=== PATIENT | female | born 2000 ===

== ENCOUNTER 2023-04-21 18:38 | Inpatient (IN) | payer BC ==
[2023-04-21] MEDS ORDERED: Phenylephrine HCl 0.5 MG/5 ML AMP IVPUSH PRN (20:33)
[2023-04-21] MEDS ORDERED: ePHEDrine 50 MG/ML SDV IVPUSH PRN ×2 (20:33)
[2023-04-21] MEDS ORDERED: Ondansetron 4 MG/2 ML SDV IVPUSH PRN (20:41)
[2023-04-21] MEDS ORDERED: Sodium Chloride 0.9% 2.5 ML Syringe FLUSH PRN (20:41)
[2023-04-21] MEDS ORDERED: Lidocaine 1% 50 ML MDV INJECT PRN (20:41)
[2023-04-21] MEDS ORDERED: Water For Irrigation,Sterile 1,000 ML Container IRR PRN (20:41)
[2023-04-21] MEDS ORDERED: Terbutaline 1 MG/ML SDV SUBCUT PRN (20:41)
[2023-04-21] MEDS ORDERED: Misoprostol 200 MCG Tab PO PRN (20:41)
[2023-04-21] MEDS ORDERED: Tranexamic Acid IN NACL,ISO-OS 1,000 MG in Premix Bag 1 BAG IV PRN (20:41)
[2023-04-21] MEDS ORDERED: Methylergonovine 0.2 MG/1 ML Amp IM PRN (20:41)
[2023-04-21] MEDS ORDERED: Sodium Chloride 0.9% 20 ML SDV IV PRN (20:41)
[2023-04-21] MEDS ORDERED: Carboprost Tromethamine 250 MCG/1 mL Vial IM PRN (20:41)
[2023-04-21] MEDS ORDERED: Sodium Chloride 0.9% 10 ML Syringe FLUSH PRN (20:41)
[2023-04-21] MEDS ORDERED: Nalbuphine 10 MG/0.5 ML Syringe IVPUSH PRN (20:41)
[2023-04-21] MEDS ORDERED: Oxytocin/0.9 % Sodium Chloride 30 UNIT/500 ML BAG IV SCH (20:45)
[2023-04-21 21:35] LABS: HEMOGLOBIN 11.5 g/dL (12.0-16.0); MEAN CORPUSCULAR HEMOGLOBIN 25.9 pg (28.0-32.0); MEAN CORPUSCULAR HGB CONC 32.9 g/dL (32.0-36.0); MEAN CORPUSCULAR VOLUME 78.8 fL (83.0-99.0); MEAN PLATELET VOLUME 12.6 fL (9.4-12.3); PLATELET COUNT,PLT 234 K/uL (150-400); RED BLOOD CELL COUNT 4.44 M/uL (4.10-5.30); WHITE BLOOD CELL COUNT,WBC 14.24 K/uL (3.9-11.3)
[2023-04-21] MEDS: Lactated Ringers 1,000 ML IV SCH (21:55)
[2023-04-21] MEDS: Ropivacaine HCl/PF 400 MG in Premix Bag 1 BAG EPIDUR SCH (22:18)
[2023-04-21] MEDS ORDERED: dexmedeTOMIDine HCl 200 MCG/2 ML SDV ONE (22:23)
[2023-04-22] MEDS: Oxytocin/0.9 % Sodium Chloride 30 UNIT/500 ML BAG IV SCH (01:55)
[2023-04-22] MEDS ORDERED: Acetaminophen 500 MG Tab PO PRN (08:56)
[2023-04-22] MEDS ORDERED: Docusate Sodium 100 MG Cap PO PRN (08:56)
[2023-04-22] MEDS ORDERED: Benzocaine/Menthol 20%-0.5% Spray 78 GM Cannister TOP PRN (08:56)
[2023-04-22] MEDS ORDERED: Oxytocin 10 Units/1 ML SDV IM PRN (08:58)
[2023-04-22] MEDS: Acetaminophen 500 MG Tab PO ONE (09:24)
[2023-04-22] MEDS: Docusate Sodium 100 MG Cap PO PRN (09:24)
[2023-04-22] MEDS: Ibuprofen 800 MG Tab PO PRN (17:43)
[2023-04-22] MEDS: Lanolin 100% Cream 7 GM Tube TOP PRN (21:20)
[2023-04-23] MEDS: Witch Hazel Medicated Pads 40/Jar TOP PRN (00:13)
[2023-04-23 06:36] LABS: HEMATOCRIT 29.4 % (37.0-47.0); HEMOGLOBIN 9.5 g/dL (12.0-16.0)
[2023-04-23] MEDS: Sodium Ferric Gluconate Cmplex 125 MG in Sodium Chloride 0.9% 100 ML IV SCH (08:59)
== END 2023-04-23 14:15 | disposition home or self-care (01) | DRG 560 ==
LOC: MW.OBCHECK 18:38 → MW.OB 18:39 → MW.OBCHECK 20:41 → MW.OB 20:41 → OBSVTOIN 04-22 07:05 → MW.OB 04-22 12:17
PROVIDERS: ADMIT Obstetrics & Gynecology; ATTEND Obstetrics & Gynecology
PROC: 10E0XZZ Delivery of Products of Conception, External Approach (ICD-10-PCS; principal; 2023-04-22)
PROC: 3E0P7VZ Introduction of Hormone into Female Reproductive, Via Natural or Artificial Opening (ICD-10-PCS; 2023-04-22)
PROC: 0KQM0ZZ Repair Perineum Muscle, Open Approach (ICD-10-PCS; 2023-04-22)
PROC: 3E0R3BZ Introduction of Anesthetic Agent into Spinal Canal, Percutaneous Approach (ICD-10-PCS; 2023-04-22)
PROC: 00HU33Z Insertion of Infusion Device into Spinal Canal, Percutaneous Approach (ICD-10-PCS; 2023-04-22)
DX: O42.02 Full-term premature rupture of membranes, onset of labor within 24 hours of rupture (principal); Z37.0 Single live birth; O32.6XX0 Maternal care for compound presentation, not applicable or unspecified; O70.1 Second degree perineal laceration during delivery; Z3A.39 39 weeks gestation of pregnancy; O99.03 Anemia complicating the puerperium
CPT/HCPCS: 01967; 36415; 51702; 59025; 84112; 85014; 85018; 85027; 86592; 86850; 86900; 86901; 99213; A9270-GY; J2590; J2795; J2916; J3490; J7120

== ENCOUNTER 2023-05-02 17:19 | Emergency (ER) | payer BC ==
[2023-05-02 18:54] LABS: BASOPHILS ABSOLUTE AUTO 0.01 K/uL (0.00-0.20); BASOPHILS PERCENT AUTO 0.1 % (0.0-1.0); EOSINOPHILS ABSOLUTE AUTO 0.01 K/uL (0.00-0.45); EOSINOPHILS PERCENT AUTO 0.1 % (0.0-6.0); HEMATOCRIT 37.7 % (37.0-47.0); HEMOGLOBIN 12.1 g/dL (12.0-16.0); IMMATURE GRAN ABSOLUTE AUTO 0.04 K/uL (0.00-0.05); IMMATURE GRAN PERCENT AUTO 0.4 % (0.0-0.4); LYMPHOCYTES ABSOLUTE AUTO 2.51 K/uL (1.00-4.80); LYMPHOCYTES PERCENT AUTO 26.9 % (24.0-44.0); MEAN CORPUSCULAR HEMOGLOBIN 25.6 pg (28.0-32.0); MEAN CORPUSCULAR HGB CONC 32.1 g/dL (32.0-36.0); MEAN CORPUSCULAR VOLUME 79.7 fL (83.0-99.0); MEAN PLATELET VOLUME 10.1 fL (9.4-12.3); MONOCYTES ABSOLUTE AUTO 0.64 K/uL (0.00-0.80); MONOCYTES PERCENT AUTO 6.9 % (0.0-8.0); NEUTROPHILS ABSOLUTE AUTO 6.11 K/uL (1.80-7.70); NEUTROPHILS PERCENT AUTO 65.6 % (41.0-71.0); PLATELET COUNT,PLT 390 K/uL (150-400); RED BLOOD CELL COUNT 4.73 M/uL (4.10-5.30); WHITE BLOOD CELL COUNT,WBC 9.32 K/uL (3.9-11.3)
[2023-05-02 19:19] LABS: A/G RATIO 0.7 (0.9-1.6); ALBUMIN 3.5 g/dL (3.4-5.0); BILIRUBIN TOTAL 0.3 mg/dL (0.2-1.0); CALCIUM 9.1 mg/dL (8.5-10.1); CARBON DIOXIDE,CO2 25.2 mmol/L (21.0-32.0); CREATININE 0.8 mg/dL (0.6-1.0); EST CRCL DRUG DOSING (CG) 115.28 mL/min; POTASSIUM,K 3.9 mmol/L (3.5-5.1); PROTEIN TOTAL,TP 8.3 g/dL (6.4-8.2)
[2023-05-02 21:34] LABS: BILIRUBIN,URINE NEGATIVE (NEGATIVE); COLOR,URINE YELLOW; GLUCOSE,URINE NEGATIVE (NEGATIVE); KETONES,URINE NEGATIVE (NEGATIVE); LEUKOCYTE ESTERASE,URINE MODERATE (NEGATIVE); NITRITE,URINE NEGATIVE (NEGATIVE); OCCULT BLOOD,URINE LARGE (NEGATIVE); PROTEIN,URINE NEGATIVE (NEGATIVE); UROBILINOGEN,URINE 0.2 EU/dL (<2.0)
[2023-05-02 21:37] LABS: APPEARANCE,URINE SLT CLOUDY
[2023-05-02 21:40] LABS: BACTERIA,URINE 1+ (NEGATIVE); EPITHELIAL CELLS,URINE FEW (NONE-FEW); MUCUS,URINE LIGHT (NONE-MOD); WBC,URINE 20-25 (0-5/HPF)
[2023-05-02] MEDS: Cephalexin 500 MG Cap PO ONE (21:57)
== END 2023-05-02 22:02 | disposition home or self-care (01) ==
LOC: MW.ED 17:19
DX: N39.0 Urinary tract infection, site not specified (principal); Z75.8 Other problems related to medical facilities and other health care; Z86.16 Personal history of COVID-19
CPT/HCPCS: 36415; 51798; 80053; 81001; 85025; 87086; 99283; A9270

== ENCOUNTER 2024-05-26 23:43 | Inpatient (IN) | payer BC, OTHER ==
[2024-05-26] MEDS ORDERED: Sodium Chloride 0.9% 10 ML Syringe FLUSH PRN (23:56)
[2024-05-26] MEDS ORDERED: Carboprost Tromethamine 250 MCG/1 mL Vial IM PRN (23:56)
[2024-05-26] MEDS ORDERED: Sodium Chloride 0.9% 20 ML SDV IV PRN (23:56)
[2024-05-26] MEDS ORDERED: Misoprostol 200 MCG Tab RECTAL PRN (23:56)
[2024-05-26] MEDS ORDERED: Butorphanol 1 MG/ML SDV IVPUSH PRN (23:56)
[2024-05-26] MEDS ORDERED: Water For Irrigation,Sterile 1,000 ML Container IRR PRN (23:56)
[2024-05-26] MEDS ORDERED: Ondansetron 4 MG/2 ML SDV IVPUSH PRN (23:56)
[2024-05-26] MEDS ORDERED: Lidocaine 1% 50 ML MDV INJECT PRN (23:56)
[2024-05-26] MEDS ORDERED: Methylergonovine 0.2 MG/1 ML Amp IM PRN (23:56)
[2024-05-26] MEDS ORDERED: Sodium Chloride 0.9% 2.5 ML Syringe FLUSH PRN (23:56)
[2024-05-26] MEDS ORDERED: Misoprostol 200 MCG Tab PO PRN (23:56)
[2024-05-27] MEDS: Ampicillin 2 GM in Sodium Chloride 0.9% 100 ML IV ONE (00:10)
[2024-05-27] MEDS: Lactated Ringers 1,000 ML IV SCH (00:10)
[2024-05-27 00:25] LABS: BASOPHILS ABSOLUTE AUTO 0.01 K/uL (0.00-0.20); BASOPHILS PERCENT AUTO 0.1 % (0.0-1.0); EOSINOPHILS ABSOLUTE AUTO 0.01 K/uL (0.00-0.45); EOSINOPHILS PERCENT AUTO 0.1 % (0.0-6.0); HEMATOCRIT 34.7 % (37.0-47.0); HEMOGLOBIN 11.2 g/dL (12.0-16.0); IMMATURE GRAN ABSOLUTE AUTO 0.06 K/uL (0.00-0.05); IMMATURE GRAN PERCENT AUTO 0.5 % (0.0-0.4); LYMPHOCYTES PERCENT AUTO 21.1 % (24.0-44.0); MEAN CORPUSCULAR HEMOGLOBIN 24.6 pg (28.0-32.0); MEAN CORPUSCULAR HGB CONC 32.3 g/dL (32.0-36.0); MEAN CORPUSCULAR VOLUME 76.3 fL (83.0-99.0); MEAN PLATELET VOLUME 11.5 fL (9.4-12.3); MONOCYTES ABSOLUTE AUTO 0.65 K/uL (0.00-0.80); MONOCYTES PERCENT AUTO 5.3 % (0.0-8.0); NEUTROPHILS ABSOLUTE AUTO 9.01 K/uL (1.80-7.70); NEUTROPHILS PERCENT AUTO 72.9 % (41.0-71.0); PLATELET COUNT,PLT 239 K/uL (150-400); RED BLOOD CELL COUNT 4.55 M/uL (4.10-5.30); WHITE BLOOD CELL COUNT,WBC 12.34 K/uL (3.9-11.3)
[2024-05-27] MEDS: Ropivacaine HCl/PF 400 MG in Premix Bag 1 BAG EPIDUR SCH (00:40)
[2024-05-27] MEDS ORDERED: ePHEDrine 50 MG/ML SDV IVPUSH PRN (00:55)
[2024-05-27] MEDS ORDERED: ePHEDrine 50 MG/ML SDV IM PRN (00:55)
[2024-05-27] MEDS ORDERED: Phenylephrine HCl In 0.9% NaCl 1 MG/10 ML Syringe IVPUSH PRN (00:55)
[2024-05-27] MEDS ORDERED: dexmedeTOMIDine HCl 200 MCG/2 ML SDV EPIDUR SCH (01:00)
[2024-05-27] MEDS: Ampicillin 1 GM in Sodium Chloride 0.9% 50 ML IV SCH (04:07)
[2024-05-27] MEDS: Oxytocin/0.9 % Sodium Chloride 30 UNIT/500 ML BAG IV SCH (06:30)
[2024-05-27] MEDS ORDERED: Lanolin 100% Cream 7 GM Tube TOP PRN (06:51)
[2024-05-27] MEDS ORDERED: oxyCODONE 5 MG Tab PO PRN (06:51)
[2024-05-27 07:13] LABS: PH,UMBILICAL ARTERIAL 7.25 (7.18-7.38); PH,UMBILICAL VENOUS 7.31 (7.25-7.45)
[2024-05-27] MEDS: Acetaminophen 500 MG Tab PO PRN (07:24)
[2024-05-27] MEDS: Witch Hazel Medicated Pads 40/Jar TOP PRN (07:29)
[2024-05-27] MEDS: Docusate Sodium 100 MG Cap PO PRN (07:29)
[2024-05-27] MEDS: Benzocaine/Menthol 20%-0.5% Spray 78 GM Cannister TOP PRN (07:29)
[2024-05-27] MEDS: Ibuprofen 800 MG Tab PO PRN (10:09)
[2024-05-27] MEDS ORDERED: Doxylamine Succinate 25 MG Tab PO PRN (22:47)
[2024-05-28 06:23] LABS: HEMATOCRIT 33.8 % (37.0-47.0); HEMOGLOBIN 10.5 g/dL (12.0-16.0)
[2024-05-28] MEDS: Phenylephrine HCl In 0.9% NaCl 1 MG/10 ML Syringe ONE (08:35)
[2024-05-28] MEDS: Bupivacaine 0.5% 10 ML SDV ONE (08:35)
[2024-05-28] MEDS: Ropivacaine HCl/PF 200 ML ONE (08:35)
== END 2024-05-28 14:47 | disposition home or self-care (01) | DRG 807 ==
LOC: MW.OB 23:43 → MW.OBCHECK 23:43 → MW.OB 23:56 → OBSVTOIN 05-27 06:51 → MW.OB 05-27 18:36
PROVIDERS: ADMIT Obstetrics & Gynecology; ATTEND Obstetrics & Gynecology
PROC: 10E0XZZ Delivery of Products of Conception, External Approach (ICD-10-PCS; principal; 2024-05-27)
PROC: 0HQ9XZZ Repair Perineum Skin, External Approach (ICD-10-PCS; 2024-05-27)
PROC: 3E0R3BZ Introduction of Anesthetic Agent into Spinal Canal, Percutaneous Approach (ICD-10-PCS; 2024-05-27)
PROC: 00HU33Z Insertion of Infusion Device into Spinal Canal, Percutaneous Approach (ICD-10-PCS; 2024-05-27)
PROC: 10907ZC Drainage of Amniotic Fluid, Therapeutic from Products of Conception, Via Natural or Artificial Opening (ICD-10-PCS; 2024-05-27)
PROC: 3E033VJ Introduction of Other Hormone into Peripheral Vein, Percutaneous Approach (ICD-10-PCS; 2024-05-27)
DX: O99.824 Streptococcus B carrier state complicating childbirth (principal); Z37.0 Single live birth; O70.0 First degree perineal laceration during delivery; Z3A.38 38 weeks gestation of pregnancy
CPT/HCPCS: 36415; 51702; 59025; 82803; 85014; 85018; 85025; 86592; 86850; 86900; 86901; A9270-GY; J0290; J0665; J2590; J2795; J7120